=== PATIENT | male | born 1955 | race Caucasian/White ===

== ENCOUNTER 2018-05-21 19:31 | Inpatient (IN) | payer BC ==
[~2018-05-21] VITALS: Ht 188 cm; Wt 92.3 kg
[2018-05-21] MEDS ORDERED: LEXAPRO20 MG PO (19:36)
[2018-05-21] MEDS ORDERED: TENORMIN25 MG PO (19:36)
[2018-05-21] MEDS ORDERED: DOXEPIN HCL10 MG PO (19:37)
[2018-05-21] MEDS ORDERED: LIPITOR10 MG PO (19:37)
[2018-05-21] MEDS ORDERED: NORVASC10 MG PO (19:37)
[2018-05-21 20:07] LABS: BASOPHILS 0.3 % (0-2); EOSINOPHILS 1.4 % (0-7); HEMATOCRIT 35.9 % (42.0-54.0); HEMOGLOBIN 12.7 g/dL (13.5-17.5); IMMATURE GRANULOCYTES 0.3 % (0-5); LYMPHOCYTES 17.5 % (15-50); MCH 31.1 pg (26.0-34.0); MCHC 35.4 g/dL (31.0-37.0); MEAN PLATELET VOLUME 11.5 fL (7.4-10.4); MONOCYTES 12.4 % (2-11); NEUTROPHILS 68.1 % (40-80); RBC 4.08 10x6/uL (4.20-6.10); RDW 14.3 % (11.5-14.5); WBC 6.6 10x3/uL (4.8-10.8)
[2018-05-21 20:09] LABS: PLATELET COUNT 129 10x3/uL (130-400)
[2018-05-21 20:32] LABS: ALBUMIN 3.3 g/dL (3.4-5.0); ALKALINE PHOSPHATASE 60 U/L (46-116); ALT (SGPT) 78 U/L (10-68); BILIRUBIN - TOTAL 1.57 mg/dL (0.2-1.3); CALC OSMOLALITY 266 mosm/kg (275-300); CALCIUM 8.7 mg/dL (8.5-10.1); CARBON DIOXIDE 25.5 mmol/L (21.0-32.0); CHLORIDE - SERUM 93 mmol/L (98-107); CREATININE - SERUM 1.6 mg/dL (0.6-1.3); POTASSIUM - SERUM 3.8 mmol/L (3.5-5.1); PROTEIN - SERUM 6.8 g/dL (6.4-8.2); SODIUM 131 mmol/L (136-145); UREA NITROGEN 20 mg/dL (7-18); eGFR NON AFRICAN AMERICAN 47 mL/min (90-120)
[2018-05-21 20:33] LABS: GLUCOSE 125 mg/dL (74-106)
[2018-05-21 20:43] LABS: CREATINE KINASE 633 UL (21-232); LIPASE 219 U/L (73-393); MAGNESIUM - SERUM 1.5 mg/dL (1.8-2.4); PRO BNP 141 pg/mL (0-125); THYROID STIMULATING HORMONE 2.26 uIU/mL (0.36-3.74); TROPONIN-I < 0.017 ng/mL (0.000-0.060)
[2018-05-21 20:44] LABS: CKMB 1.8 U/L (0.0-3.6)
[2018-05-21 21:04] VITALS: BP 113/77
[2018-05-21 23:00] VITALS: BP 115/84
[2018-05-21 23:10] VITALS: BP 122/80; BMI 26.3
[2018-05-22] VITALS (24 sets, daily range): BP systolic 98–143; BP diastolic 70–112
--- NOTE | 2018-05-22 13:33 | HP ---
PATIENT: ZHANNA FOWLER MEDICAL RECORD: [id number] ACCOUNT: [id number] LOCATION:[facility] D2316 : 59 ADMISSION DATE: 05/21/18 PCP: No PCP HISTORY AND PHYSICAL EXAMINATION REASON FOR ADMISSION: Confusion, intoxication, and disequilibrium. HISTORY OF PRESENT ILLNESS: The patient is a 62-year-old male with long-standing history of alcoholism. His states he has been drinking up to 2 pints of alcohol a day. He was intoxicated most of last weekend. He was noted by coworkers to be tremulous, and when confronted about that by his superiors, he actually quit his job. He has been at home for the last 4 days and in poor condition. He apparently ran out of alcohol 3 days ago. His temporarily left the home for her safety. He has fallen several times and has actually broke a glass coffee table. His states he has fallen at least 3 times that she is aware of. He has had no nausea or vomiting, bloody stools, or hematemesis. PAST MEDICAL HISTORY: Alcoholism, he has had inpatient treatment in the past; essential hypertension; depression; hyperlipidemia; and lumbar disc disease with back pain. ALLERGIES: SULFA. PAST SURGICAL HISTORY: Basal cell carcinoma removed from his face. SOCIAL HISTORY: He is . His is filing for divorce. 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 He drinks 2 pints of liquor a day. He smokes cigarettes as well. FAMILY HISTORY: His father last year from heart disease and CHF. Mother is currently living. HOME MEDICATIONS: Atenolol 25 mg a day, Lexapro 20 mg a day, Norvasc 10 mg a day, Lipitor 10 mg at bedtime, and Sinequan 10 mg p.o. daily. REVIEW OF SYSTEMS: Obtained from his . GENERAL: She says he has not had fever or weight loss. HEENT: No recent visual change. RESPIRATORY: No SOB. CARDIAC: No chest pain. GASTROINTESTINAL: No nausea, vomiting, melena, or hematemesis. GENITOURINARY: No dysuria. MUSCULOSKELETAL: Unknown except for chronic lumbago. NEUROLOGIC: No history of stroke, TIA, vascular headaches, or memory loss. She said he has been very tremulous and had disequilibrium and fallen several times in the last 3-4 days. INTEGUMENT: Bruising on his elbow with laceration. PSYCHIATRIC: She states that he is anxious and feels depressed. PHYSICAL EXAMINATION: GENERAL: The patient was initially alert and oriented, but disheveled in appearance according to the ED doctor. Six hours later, he is in the ICU. He is tremulous with eyes closed, not responding to verbal stimuli. VITAL SIGNS: Pulse is 89, respirations are 15, blood pressure 139/91 with sat HISTORY AND PHYSICAL [id number] ZHANNA FOWLER JOCELYNE of 95% on room air, and temperature 99 degrees Fahrenheit. HEENT: Normocephalic. Pupils are reactive. Sclerae are nonicteric. Oropharynx unremarkable except for dry mucous membranes. NECK: Supple. CHEST: Clear. HEART: Regular rate and rhythm. ABDOMEN: Slightly obese, nontender, and atraumatic appearing. GENITOURINARY: Circumcised. Testes down bilaterally. EXTREMITIES: Lower extremity exam is unremarkable. His right elbow does show a laceration that has been bandaged over the olecranon and bruising. NEUROLOGICAL: The patient is disoriented currently. He is moaning and twitching, but not seizing. He has no localizing motor deficits. Gait is not testable, but apparently, he was very unsteady of gait on admission to the ED. LABORATORY DATA: Initial labs showed white count of 6600, H&H of 12.7 and 35.9, and platelet count 129,000. Sodium 131, BUN and creatinine were 20 and 1.6, and glucose 125. Lactic acid 1.5. Magnesium low at 1.5, bilirubin up at 1.57, AST and ALT 96 and 78 respectively, and alk phos 60. Cardiac enzymes negative except for creatinine kinase of 633. ProBNP 141. TSH 2.26. Alcohol level was 0. Urine is currently pending. PTT was 27. DIAGNOSTIC DATA: Chest x-ray showed no acute disease. ASSESSMENT: 1. Alcoholism with alcohol withdrawal, concern for impending DTs. 2. Hypomagnesemia. 3. Hyponatremia. 4. Hypertension. 5. Laceration right elbow. 6. Hyperlipidemia. PLAN: We will resume p.o. meds if more alert, holding for now. He has been given thiamine and banana bag q. 24 hours. His states he has hit his head several times over the last 3 days. There is no obvious trauma. If there are any localizing neurologic signs, we will obtain CT of brain. I have discussed his condition with his and she understands there is risk of mortality. TRANSINT:[id number] Voice Confirmation ID: [id number] DOCUMENT ID: [id number] KURT CHENG MD at 1333 CC: [id number] DICTATION DATE: 05/22/18706 JUDGE CLERK: 05/22/18 1245 ADM IN [place] [address] [place] [address]
[2018-05-23] VITALS (23 sets, daily range): BP systolic 108–171; BP diastolic 71–162
[2018-05-23 01:24] LABS: APPEARANCE HAZY (CLEAR); BILIRUBIN NEGATIVE (NEGATIVE); COLOR YELLOW (YELLOW); GLUCOSE NEGATIVE (NEGATIVE); KETONE MODERATE mg/dL (NEGATIVE); NITRITE NEGATIVE (NEGATIVE); PROTEIN NEGATIVE (NEGATIVE); SPECIFIC GRAVITY 1.015 (1.005-1.020); UROBILINOGEN NORMAL (NORMAL)
[2018-05-23 01:53] LABS: EPITHELIAL CELLS OCC /hpf (0-5); WHITE CELLS - URINE RARE /hpf (0-5)
[2018-05-23 01:54] LABS: BACTERIA FEW /hpf (NONE SEEN)
[2018-05-23 02:01] LABS: UDS - AMPHET NEGATIVE QUAL (NEGATIVE); UDS - BARB NEGATIVE QUAL (NEGATIVE); UDS - BENZO NEGATIVE QUAL (NEGATIVE); UDS - COCAINE NEGATIVE QUAL (NEGATIVE); UDS - OPIATE NEGATIVE QUAL (NEGATIVE); UDS - PCP NEGATIVE QUAL (NEGATIVE); UDS - THC NEGATIVE QUAL (NEGATIVE)
[2018-05-23 04:43] LABS: BASOPHILS 0.1 % (0-2); EOSINOPHILS 1.2 % (0-7); HEMATOCRIT 36.5 % (42.0-54.0); HEMOGLOBIN 12.7 g/dL (13.5-17.5); IMMATURE GRANULOCYTES 0.3 % (0-5); LYMPHOCYTES 13.4 % (15-50); MCH 31.1 pg (26.0-34.0); MCHC 34.8 g/dL (31.0-37.0); MCV 89.5 fL (80.0-100.0); MEAN PLATELET VOLUME 10.7 fL (7.4-10.4); MONOCYTES 14.1 % (2-11); NEUTROPHILS 70.9 % (40-80); PLATELET COUNT 133 10x3/uL (130-400); RBC 4.08 10x6/uL (4.20-6.10); RDW 14.1 % (11.5-14.5); WBC 8.6 10x3/uL (4.8-10.8)
[2018-05-23 04:58] LABS: INR 1.09 (0.85-1.17); PROTIME 13.6 SECONDS (11.6-15.0)
[2018-05-23 05:07] LABS: ALBUMIN 3.1 g/dL (3.4-5.0); ALKALINE PHOSPHATASE 66 U/L (46-116); ALT (SGPT) 63 U/L (10-68); BILIRUBIN - TOTAL 1.43 mg/dL (0.2-1.3); CARBON DIOXIDE 27.7 mmol/L (21.0-32.0); CHLORIDE - SERUM 98 mmol/L (98-107); GLUCOSE 100 mg/dL (74-106); PROTEIN - SERUM 6.6 g/dL (6.4-8.2); SODIUM 137 mmol/L (136-145)
[2018-05-23 05:12] LABS: CALC OSMOLALITY 270 mosm/kg (275-300); CREATININE - SERUM 0.8 mg/dL (0.6-1.3); POTASSIUM - SERUM 3.1 mmol/L (3.5-5.1); UREA NITROGEN 5 mg/dL (7-18); eGFR NON AFRICAN AMERICAN > 90 mL/min (90-120)
--- NOTE | 2018-05-23 23:50 | MORECARE ---
CASE MANAGEMENT DISCHARGE SUMMARY PATIENT: ZHANNA FOWLER UNIT: [id number] ADM DATE: 05/21/18 AGE: 62 : 59 SEX: M ROOM/BED: D.2316 AUTHOR: LIAM SUGGS PHYSICIAN: REFERRING PHYSICIAN: KURT CHENG MD DATE OF SERVICE: 05/23/18 Discharge Plan Patient Name: ZHANNA FOWLER [facility] [facility] 1955 Planned Disposition: Home Anticipated Discharge Date: Discharge Date: Expected LOS: Initial Reviewer: [email or web address] Initial Review Date: 05/23/2018 Generated: 05/24/18 12:50 am DCPIA - Discharge Planning Initial Assessment Updated by [email or web address]: Trupti Barfield on 05/23/18 11:48 pm * Is the patient Alert and Oriented? Yes * How many steps to enter\exit or inside your home? * PCP PERSIAN * [facility] * Preadmission Environment Home with Family * ADLs Independent * Equipment None * List name and contact numbers for known caregivers / representatives who currently or will assist patient after discharge: EBER FOWLER [facility] [phone] * Verbal permission to speak to the caregivers and representatives has been obtained from the patient. N/A * Community resources currently utilized None * Additional services required to return to the preadmission environment? No * Can the patient safely return to the preadmission environment? Yes * Has this patient been hospitalized within the prior 30 days at any hospital? No Patient Name: ZHANNA FOWLER Page [id number] at 2350 All edits/amendments must be made on the electronic document DICTATION DATE: 05/23/18 235 MACHINE STONE POLISHER APPRENTICE: RC 05/23/180 RPT#: [id number] DC DATE: STATUS: ADM IN [facility] [address] [place] [address] END OF REPORT
--- NOTE | 2018-05-23 23:57 | MORECARE ---
CASE MANAGEMENT DISCHARGE SUMMARY PATIENT: ZHANNA FOWLER UNIT: [id number] ADM DATE: 05/21/18 AGE: 62 : 59 SEX: M ROOM/BED: D.2316 AUTHOR: [email or web address] PHYSICIAN: REFERRING PHYSICIAN: KURT CHENG MD DATE OF SERVICE: 05/23/18 Discharge Plan Patient Name: ZHANNA FOWLER [facility] [facility] 1955 Planned Disposition: Home Anticipated Discharge Date: Discharge Date: Expected LOS: Initial Reviewer: [email or web address] Initial Review Date: 05/23/2018 Generated: 05/24/18 12:57 am Comments DCP- Discharge Planning Updated by [email or web address]: Trupti Barfield on 05/23/18 10:[address] Patient Name: ZHANNA FOWLER Admission Status: ER Accout number: [id number] Admission Date: 05-21-2018 : 1955 Admission Diagnosis: Attending: KURT CHENG Current LOS: 2 Anticipated DC Date: Planned Disposition: Home Primary Insurance: [employer] [facility] Discharge Planning Comments: CM called and spoke with patient's Mother (Eber) regarding discharge planning. Patient is currently confused and unable to answer questions. Eber states that the patient had recently moved in with her d/t marital issues. She states that he will be coming back to stay with her upon discharge. Uncertain of patient's needs at this time. CM will continue to follow and assist as needed with discharge planning / needs. Street Light Inspector: Trupti Barfield DCPIA - Discharge Planning Initial Assessment Updated by [email or web address]: Trupti Barfield on 05/23/18 11:48 pm * Is the patient Alert and Oriented? Yes * How many steps to enter\exit or inside your home? * PCP PUERTO RICAN * [facility] * Preadmission Environment Home with Family * ADLs Independent * Equipment None * List name and contact numbers for known caregivers / representatives who currently or will assist patient after discharge: EBER FOWLER - MOTHER- [phone] * Verbal permission to speak to the caregivers and representatives has been obtained from the patient. N/A * Community resources currently utilized None * Additional services required to return to the preadmission environment? No * Can the patient safely return to the preadmission environment? Yes * Has this patient been hospitalized within the prior 30 days at any hospital? No Last DP export: 05/23/18 10:50 p Patient Name: ZHANNA FOWLER Page [id number] at 3389 All edits/amendments must be made on the electronic document DICTATION DATE: 05/23/182356 BUILDING STONECUTTER: RC 05/23/182356 RPT#: [id number] DC DATE: STATUS: ADM IN [facility] [address] [place] [address] END OF REPORT
[2018-05-24] VITALS (20 sets, daily range): BP systolic 103–147; BP diastolic 64–112
[2018-05-24 05:01] LABS: CALC OSMOLALITY 271 mosm/kg (275-300); CHLORIDE - SERUM 100 mmol/L (98-107); CREATININE - SERUM 0.8 mg/dL (0.6-1.3); GLUCOSE 112 mg/dL (74-106); POTASSIUM - SERUM 3.3 mmol/L (3.5-5.1); SODIUM 137 mmol/L (136-145); UREA NITROGEN 5 mg/dL (7-18); eGFR NON AFRICAN AMERICAN > 90 mL/min (90-120)
[2018-05-25] VITALS (16 sets, daily range): BP systolic 94–145; BP diastolic 61–83
[2018-05-25 04:23] LABS: CALC OSMOLALITY 271 mosm/kg (275-300); CALCIUM 8.5 mg/dL (8.5-10.1); CARBON DIOXIDE 26.2 mmol/L (21.0-32.0); CHLORIDE - SERUM 102 mmol/L (98-107); CREATININE - SERUM 0.8 mg/dL (0.6-1.3); GLUCOSE 122 mg/dL (74-106); MAGNESIUM - SERUM 1.9 mg/dL (1.8-2.4); SODIUM 137 mmol/L (136-145); UREA NITROGEN 4 mg/dL (7-18); eGFR NON AFRICAN AMERICAN > 90 mL/min (90-120)
[2018-05-25 04:24] LABS: POTASSIUM - SERUM 4.8 mmol/L (3.5-5.1)
[2018-05-25 07:25] LABS: ALBUMIN 2.6 g/dL (3.4-5.0); BILIRUBIN - DIRECT 0.33 mg/dL (0.00-0.30); BILIRUBIN - INDIRECT 0.94 mg/dL (0.00-1.00); BILIRUBIN - TOTAL 1.27 mg/dL (0.2-1.3); PROTEIN - SERUM 6.4 g/dL (6.4-8.2)
[2018-05-26] VITALS (14 sets, daily range): BP systolic 94–149; BP diastolic 57–99; Ht 188 cm; Wt 92.3 kg
--- NOTE | 2018-05-26 13:58 | CN ---
PATIENT NAME:ZHANNA FOWLER MEDICAL RECORD: [id number] : 59 LOCATION:[place].2310 ADMIT DATE: 05/21/18 ACCOUNT: [id number] CONSULTING PHYSICIAN: CLAYTON KINNEY MD REFERRING PHYSICIAN: KURT CHENG MD DATE OF CONSULTATION: 05/25/2018 IDENTIFYING DATA: The patient is 62 years old and he is admitted to the hospital on a voluntary basis secondary to alcohol withdrawal. HISTORY OF PRESENT ILLNESS: The patient drinks excessively. He drinks wine. He drinks beer. He drinks distilled spirits. He is evasive about how much exactly he is drinking, but it is clear it is a large amount. He is currently being admitted for DT prophylaxis. He has no evidence of psychotic symptoms and certainly no evidence of wanting to hurt himself or others. He has a lot of depressive symptoms, but I could explain all of them through his alcoholism. ASSESSMENT: Alcohol dependence. PLAN: Once the patient is medically stabilized, he should be transitioned to an inpatient substance abuse treatment program. He is willing to do this. He has been to them before and he actually had a year and a half of sobriety after completing a program in [place]. He only relapsed because he stopped going to meetings. His long-term prognosis is going to be entirely contingent upon him stopping the alcohol use. TRANSINT:[id number] Voice Confirmation ID: [id number] DOCUMENT ID: [id number] CLAYTON KINNEY MD at 1358 CC: [id number] DICTATION DATE: 05/25/18 1328 NASCAR PIT CREW PERSON: 05/25/18 1349 ADM IN [place] [address] [place] [address]
[2018-05-27] VITALS (21 sets, daily range): BP systolic 94–127; BP diastolic 58–107
[2018-05-28] VITALS (16 sets, daily range): BP systolic 92–152; BP diastolic 65–84
[2018-05-28 03:01] LABS: HEMATOCRIT 34.8 % (42.0-54.0); HEMOGLOBIN 12.1 g/dL (13.5-17.5); MCH 31.1 pg (26.0-34.0); MCHC 34.8 g/dL (31.0-37.0); MCV 89.5 fL (80.0-100.0); MEAN PLATELET VOLUME 9.7 fL (7.4-10.4); RBC 3.89 10x6/uL (4.20-6.10); RDW 13.9 % (11.5-14.5); WBC 7.7 10x3/uL (4.8-10.8)
[2018-05-28 03:12] LABS: CALC OSMOLALITY 280 mosm/kg (275-300); CARBON DIOXIDE 26.7 mmol/L (21.0-32.0); CHLORIDE - SERUM 102 mmol/L (98-107); CREATININE - SERUM 0.9 mg/dL (0.6-1.3); GLUCOSE 198 mg/dL (74-106); POTASSIUM - SERUM 3.8 mmol/L (3.5-5.1); SODIUM 137 mmol/L (136-145); UREA NITROGEN 14 mg/dL (7-18); eGFR NON AFRICAN AMERICAN > 90 mL/min (90-120)
[2018-05-29] VITALS (15 sets, daily range): BP systolic 100–138; BP diastolic 47–114
[2018-05-30] VITALS (10 sets, daily range): BP systolic 101–149; BP diastolic 67–93
--- NOTE | 2018-05-30 15:25 | MORECARE ---
CASE MANAGEMENT DISCHARGE SUMMARY PATIENT: ZHANNA FOWLER UNIT: [id number] ADM DATE: 05/21/18 AGE: 62 : 59 SEX: M ROOM/BED: D.2310 AUTHOR: LIAM SUGGS PHYSICIAN: REFERRING PHYSICIAN: KURT CHENG MD DATE OF SERVICE: 05/30/18 Discharge Plan Patient Name: ZHANNA FOWLER [facility]:[place] : 1955 Planned Disposition: Home Anticipated Discharge Date: Discharge Date: Expected LOS: Initial Reviewer: [email or web address] Initial Review Date: 05/23/2018 Generated: 05/30/18 4:25 pm Comments DCP- Discharge Planning Updated by [email or web address]: Trupti Barfield on 05/30/18 2:[address] LATE ENTRY 05/29/18 @ 1150 CM spoke with Judy with Inpatient Rehab @ [facility]. Judy stated that they are awaiting insurance auth. and as soon as they get auth. then patient can be admitted to rehab. CM contacted patient's mother Joshua Fowler [phone] and explained that we are just waiting insurance approval. CM will continue to follow and assist as needed with discharge planning / needs. 05/30/18 @ 0785 CM received call from Judy in Rehab she stated that they are still awaiting auth. She stated they have called multiple numbers trying to check on auth but haven't been able to speak to anyone. CM will continue to follow and assist as needed with discharge planning / needs. DCP- Discharge Planning Updated by [email or web address]: Trupti Barfield on 05/23/18 10:[address] Patient Name: ZHANNA FOWLER Admission Status: ER Accout number: [id number] Admission Date: 05-21-2018 : 1955 Admission Diagnosis: Attending: KURT CHENG Current LOS: 2 Anticipated DC Date: Planned Disposition: Home Primary Insurance: [employer] Discharge Planning Comments: CM called and spoke with patient's Mother (Eber) regarding discharge planning. Patient is currently confused and unable to answer questions. Eber states that the patient had recently moved in with her d/t marital issues. She states that he will be coming back to stay with her upon discharge. Uncertain of patient's needs at this time. CM will continue to follow and assist as needed with discharge planning / needs. Stonemason Helper: Trupti WELLS - Discharge Planning Initial Assessment Updated by [email or web address]: Trupti Barfield on 05/23/18 11:48 pm * Is the patient Alert and Oriented? Yes * How many steps to enter\exit or inside your home? * PCP YI * [facility] * Preadmission Environment Home with Family * ADLs Independent * Equipment None * List name and contact numbers for known caregivers / representatives who currently or will assist patient after discharge: EBER [facility]M [facility]- [phone] * Verbal permission to speak to the caregivers and representatives has been obtained from the patient. N/A * Community resources currently utilized None * Additional services required to return to the preadmission environment? No * Can the patient safely return to the preadmission environment? Yes * Has this patient been hospitalized within the prior 30 days at any hospital? No Last DP export: 05/23/18 10:57 p Patient Name: ZHANNA FOWLER Page [phone] at 1525 All edits/amendments must be made on the electronic document DICTATION DATE: 05/30/181524 COMPUTED TOMOGRAPHY SCANNER OPERATOR: RC 05/30/181524 RPT#: [id number] DC DATE: STATUS: ADM IN [facility] [address] [place] [address] END OF REPORT
[2018-05-30 15:49] LABS: ALBUMIN 2.4 g/dL (3.4-5.0); ALKALINE PHOSPHATASE 82 U/L (46-116); ALT (SGPT) 74 U/L (10-68); BILIRUBIN - TOTAL 0.39 mg/dL (0.2-1.3); CALC OSMOLALITY 277 mosm/kg (275-300); CALCIUM 8.7 mg/dL (8.5-10.1); CARBON DIOXIDE 21.4 mmol/L (21.0-32.0); CHLORIDE - SERUM 103 mmol/L (98-107); CREATININE - SERUM 1.4 mg/dL (0.6-1.3); POTASSIUM - SERUM 3.8 mmol/L (3.5-5.1); PROTEIN - SERUM 6.8 g/dL (6.4-8.2); SODIUM 138 mmol/L (136-145); UREA NITROGEN 13 mg/dL (7-18); eGFR NON AFRICAN AMERICAN 55 mL/min (90-120)
[2018-05-30 15:50] LABS: GLUCOSE 142 mg/dL (74-106)
[2018-05-30 16:03] LABS: CKMB 0.5 U/L (0.0-3.6); CREATINE KINASE 59 UL (21-232); MAGNESIUM - SERUM 1.9 mg/dL (1.8-2.4)
[2018-05-30 16:05] LABS: TROPONIN-I 0.124 ng/mL (0.000-0.060)
--- NOTE | 2018-05-30 18:26 | MORECARE ---
CASE MANAGEMENT DISCHARGE SUMMARY PATIENT: ZHANNA FOWLER UNIT: [id number] ADM DATE: 05/21/18 AGE: 62 : 59 SEX: M ROOM/BED: D.2310 AUTHOR: LIAM SUGGS PHYSICIAN: REFERRING PHYSICIAN: KURT CHENG MD DATE OF SERVICE: 05/30/18 Discharge Plan Patient Name: ZHANNA FOWLER Facility[facility]:[place] : 1955 Planned Disposition: Home Anticipated Discharge Date: Discharge Date: 05/30/2018 Expected LOS: Initial Reviewer: [email or web address] Initial Review Date: 05/23/2018 Generated: 05/30/18 7:26 pm Comments DCP- Discharge Planning Updated by [email or web address]: Trupti Barfield on 05/30/18 2:[address] LATE ENTRY 05/29/18 @ 9950 CM spoke with Judy with Inpatient Rehab @ [facility]. Judy stated that they are awaiting insurance auth. and as soon as they get auth. then patient can be admitted to rehab. CM contacted patient's mother Joshua Fowler [phone] and explained that we are just waiting insurance approval. CM will continue to follow and assist as needed with discharge planning / needs. 05/30/18 @ 1251 CM received call from Judy in Rehab she stated that they are still awaiting auth. She stated they have called multiple numbers trying to check on auth but haven't been able to speak to anyone. CM will continue to follow and assist as needed with discharge planning / needs. DCP- Discharge Planning Updated by [email or web address]: Trupti Barfield on 05/23/18 10:[address] Patient Name: ZHANNA FOWLER Admission Status: ER Accout number: [id number] Admission Date: 05-21-2018 : 1955 Admission Diagnosis: Attending: KURT CHENG Current LOS: 2 Anticipated DC Date: Planned Disposition: Home Primary Insurance: [employer] Discharge Planning Comments: CM called and spoke with patient's Mother (Eber) regarding discharge planning. Patient is currently confused and unable to answer questions. Eber states that the patient had recently moved in with her d/t marital issues. She states that he will be coming back to stay with her upon discharge. Uncertain of patient's needs at this time. CM will continue to follow and assist as needed with discharge planning / needs. Bicycle Assembler: Trupti WELLS - Discharge Planning Initial Assessment Updated by [email or web address]: Trupti Barfield on 05/23/18 11:48 pm * Is the patient Alert and Oriented? Yes * How many steps to enter\exit or inside your home? * PCP [place] * [facility] * Preadmission Environment Home with Family * ADLs Independent * Equipment None * List name and contact numbers for known caregivers / representatives who currently or will assist patient after discharge: EBER [facility]- [phone] * Verbal permission to speak to the caregivers and representatives has been obtained from the patient. N/A * Community resources currently utilized None * Additional services required to return to the preadmission environment? No * Can the patient safely return to the preadmission environment? Yes * Has this patient been hospitalized within the prior 30 days at any hospital? No Last DP export: 05/30/18 2:25 p Patient Name: ZHANNA FOWLER Page [phone] at 1826 All edits/amendments must be made on the electronic document DICTATION DATE: 05/30/181825 MARBLE HELPER: RC 05/30/181825 RPT#: [id number] DC DATE:05/30/18 STATUS: DIS IN [facility] [address] [place] [address] END OF REPORT
== END 2018-05-30 18:13 | DRG 896 ==
LOC: D.ER 19:31 → D.ICU 20:38 → D.EDHOLD 20:38 → D.ICU 21:28
PROVIDERS: Family Medicine; Orthopaedic Surgery; ADMIT Family Medicine; ATTEND Family Medicine
PROC: 0BH17EZ Insertion of Endotracheal Airway into Trachea, Via Natural or Artificial Opening (ICD-10-PCS; principal; 2018-05-30)
DX: F10.231 Alcohol dependence with withdrawal delirium (principal); I21.09 ST elevation (STEMI) myocardial infarction involving other coronary artery of anterior wall; E87.1 Hypo-osmolality and hyponatremia; R44.3 Hallucinations, unspecified; L03.113 Cellulitis of right upper limb; I44.2 Atrioventricular block, complete; I47.2 Ventricular tachycardia; E83.42 Hypomagnesemia; I10 Essential (primary) hypertension; S51.011A Laceration without foreign body of right elbow, initial encounter; W19.XXXA Unspecified fall, initial encounter; Z91.81 History of falling; R40.2363 Coma scale, best motor response, obeys commands, at hospital admission; R40.2143 Coma scale, eyes open, spontaneous, at hospital admission; R40.2243 Coma scale, best verbal response, confused conversation, at hospital admission; E86.0 Dehydration; F17.210 Nicotine dependence, cigarettes, uncomplicated; E78.5 Hyperlipidemia, unspecified; I95.9 Hypotension, unspecified; R56.9 Unspecified convulsions; R32 Unspecified urinary incontinence; R15.9 Full incontinence of feces; I49.01 Ventricular fibrillation